=== PATIENT | female | born 1995 | race Caucasian/White ===

== ENCOUNTER 2016-05-12 01:25 | Emergency (ER) | payer BC ==
[2016-05-12 08:35] LABS: HEMOGLOBIN 13.7 gm/dl (12.3-15.3); WHITE BLOOD COUNT 7.7 K/UL (4.5-11.0)
[2016-05-12 09:00] LABS: BUN/CREATININE RATIO 15 (0-10)
== END 2016-05-12 14:50 | disposition home or self-care (01) ==
LOC: ER1 01:25
PROVIDERS: Specialist/Technologist Athletic Trainer
DX: R10.11 Right upper quadrant pain (principal); E87.6 Hypokalemia; R82.4 Acetonuria
CPT/HCPCS: 36415; 76705; 80053; 81001; 83690; 84703; 85025; 96361; 96374; 96375; 99284; J2270; J2405; J7030

== ENCOUNTER → 2020-11-20 | Outpatient (CLI) | payer BC ==
[~2020-11-20] MED LIST: COLACE 100MG C100 MG PO; IBUPROFEN600 MG PO; LABETALOL HCL100 MG PO; LORTAB 5-325 M1 EACH PO
[2020-11-20 14:24] LABS: URINE CREATININE 64.4 mg/dL
[2020-11-20 15:43] LABS: HEMOGLOBIN 11.6 gm/dl (12.3-15.3); RED BLOOD COUNT 4.25 M/UL (4.00-5.10); WHITE BLOOD COUNT 6.6 K/UL (4.5-11.0)
[2020-11-21 08:13] LABS: HBSAG SCREEN Negative (Negative); HIV SCREEN 4TH GENERATION WRFX Non Reactive (Non Reactive); PROGESTERONE 19.6 ng/mL (.); RUBELLA ANTIBODIES, IGG 3.14 index (Immune >0.99)
[2020-11-21 11:13] LABS: HCV AB <0.1 (0.0-0.9)
[2020-11-21 15:14] LABS: TREPONEMA PALLIDUM ANTIBODIES Non Reactive (Non Reactive)
[2020-11-22 07:11] LABS: HEPATITIS B SURF AB QUANT 8.4 mIU/mL (Immunity>9.9)
== END ==
LOC: LAB 13:24
PROVIDERS: Obstetrics & Gynecology
DX: Z34.91 Encounter for supervision of normal pregnancy, unspecified, first trimester (principal)
CPT/HCPCS: 36415; 80076; 81001; 82570; 84144; 84156; 84443; 84702; 85025; 86317; 86762; 86780; 86787; 86803; 86850; 86900; 86901; 87086; 87340; 87389